=== PATIENT | female | born 1985 | race Caucasian/White ===

== ENCOUNTER 2017-04-13 07:02 | Inpatient (IN) | payer BC ==
[2017-04-13] VITALS (37 sets, daily range): BP systolic 70–179; BP diastolic 38–102
[~2017-04-13] VITALS: Ht 167.6 cm; Wt 81.6 kg
[2017-04-13] MEDS ORDERED: PRENATAL TABLE1 EAC3 PO (08:11)
[2017-04-13 08:30] LABS: HEMATOCRIT 30.4 % (36.0-46.0); MCH 30.4 PG (29.0-34.0); MCHC 36.2 G/DL (30.0-36.0); NRBC (%) 0.3 /100 WBC (0-0); PLATELET COUNT 53 K/uL (156-360); RBC DIS.WIDTH-CV 14.2 % (11.8-14.6); RBC DIS.WIDTH-SD 42.7 % (39-53); RED BLOOD COUNT 3.62 M/uL (3.80-5.20); WHITE BLOOD COUNT 14.1 K/uL (4.1-10.2)
[2017-04-13 08:57] LABS: ABS NEUTROPHIL COUNT 11.4; ANISOCYTOSIS 1+; ATYPICAL LYMPHOCYTE 0.9 %; BAND NEUTROPHILS 4.3 % (0-8.0); BASOPHILS 0.9 %; EOSINOPHIL ABS CT 0.1; EOSINOPHILS 0.9 % (0-5.0); LYMPHOCYTES 6.1 % (15.0-45.0); METAMYELOCYTES 1.7 %; MICROCYTOSIS 1+; MONOCYTES 7.8 % (0-9.0); MYELOCYTES 0.9 %; NUCLEATED RBC'S 1.7; PLAT.SUFFICIENCY DECREASED; POLYCHROMASIA 1+; SEG.NEUTROPHILS 76.5 % (46.0-76.0); SPHEROCYTES 1+; TEAR DROP CELLS 1+
[2017-04-13 09:49] LABS: ALBUMIN 2.8 G/DL (3.2-4.8); CHLORIDE 92 MEQ/L (99-109); POTASSIUM 4.5 MEQ/L (3.7-5.4); SODIUM 122 MEQ/L (136-147); TOTAL BILIRUBIN 2.7 MG/DL (0.0-1.0)
[2017-04-13 09:51] LABS: HEMATOCRIT 30.7 % (36.0-46.0); HEMOGLOBIN 11.5 G/DL (11.9-15.5); MCH 31.6 PG (29.0-34.0); MCHC 37.5 G/DL (30.0-36.0); MCV 84.3 FL (83-99); NRBC (%) 0.5 /100 WBC (0-0); PLATELET COUNT 52 K/uL (156-360); RBC DIS.WIDTH-CV 14.4 % (11.8-14.6); RBC DIS.WIDTH-SD 43.5 % (39-53); RED BLOOD COUNT 3.64 M/uL (3.80-5.20); WHITE BLOOD COUNT 14.9 K/uL (4.1-10.2)
[2017-04-13 09:55] LABS: ALKALINE PHOSPHATASE 185 IU/L (3-129); ALT (GPT) 459 IU/L (3-49); AST (GOT) 238 IU/L (2-34); CREATININE 0.5 MG/DL (0.6-1.3); GFR ESTIMATE (CALCULATED) > 59 mL/min/; GLUCOSE 78 mg/dL (70-99); TOTAL PROTEIN 5.5 G/DL (6.4-8.3); UREA NITROGEN (BUN) 8 mg/dL (9-23); URIC ACID 4.2 mg/dL (3.1-9.2)
[2017-04-13 10:14] LABS: APPEARANCE CLEAR ((CLEAR)); BILIRUBIN NEGATIVE; BLOOD NEGATIVE; COLOR AMBER ((YELLOW)); GLUCOSE (STRIP) NEGATIVE; KETONES 5; LEUKOCYTES NEGATIVE; NITRITE NEGATIVE; PROTEIN (STRIP) 100; SPECIFIC GRAVITY 1.011 (1.000-1.030)
[2017-04-13 10:18] LABS: BACTERIA NONE SEEN /HPF; EPITHELIAL CELLS RARE /HPF; MUCUS NONE SEEN /LPF; RED BLOOD CELLS 0-5 /HPF (0-5); WHITE BLOOD CELLS 0-5 /HPF (0-5)
[2017-04-13 10:39] LABS: UR CREATININE CONCENTRATION 104.8 MG/DL
[2017-04-13 11:20] LABS: ABS NEUTROPHIL COUNT 12.1; ANISOCYTOSIS 1+; EOSINOPHIL ABS CT 0.1; MICROCYTOSIS 1+; PLAT.SUFFICIENCY DECREASED; POLYCHROMASIA 1+; SPHEROCYTES 1+
[2017-04-13 15:00] LABS: HEMATOCRIT 31.4 % (36.0-46.0); HEMOGLOBIN 11.4 G/DL (11.9-15.5); MCH 30.3 PG (29.0-34.0); MCHC 36.3 G/DL (30.0-36.0); MCV 83.5 FL (83-99); NRBC (%) 0.4 /100 WBC (0-0); PLATELET COUNT 62 K/uL (156-360); RBC DIS.WIDTH-CV 14.2 % (11.8-14.6); RBC DIS.WIDTH-SD 41.9 % (39-53); RED BLOOD COUNT 3.76 M/uL (3.80-5.20); WHITE BLOOD COUNT 14.6 K/uL (4.1-10.2)
[2017-04-13 15:15] LABS: ALBUMIN 2.8 G/DL (3.2-4.8); ALKALINE PHOSPHATASE 179 IU/L (3-129); ALT (GPT) 427 IU/L (3-49); AST (GOT) 227 IU/L (2-34); CHLORIDE 92 MEQ/L (99-109); CREATININE 0.4 MG/DL (0.6-1.3); GFR ESTIMATE (CALCULATED) > 59 mL/min/; POTASSIUM 3.7 MEQ/L (3.7-5.4); SODIUM 121 MEQ/L (136-147); TOTAL BILIRUBIN 2.6 MG/DL (0.0-1.0); TOTAL PROTEIN 5.7 G/DL (6.4-8.3); UREA NITROGEN (BUN) 6 mg/dL (9-23)
[2017-04-13 15:18] LABS: GLUCOSE 128 mg/dL (70-99)
[2017-04-13 16:18] LABS: ABS NEUTROPHIL COUNT 10.1; EOSINOPHIL ABS CT 0.1
[2017-04-13] MEDS ORDERED: IBUPROFEN800 MG PO (20:25)
[2017-04-13 21:33] LABS: ALBUMIN 2.2 G/DL (3.2-4.8); ALT (GPT) 344 IU/L (3-49); AST (GOT) 180 IU/L (2-34); CHLORIDE 96 MEQ/L (99-109); CREATININE 0.6 MG/DL (0.6-1.3); GFR ESTIMATE (CALCULATED) > 59 mL/min/; GLUCOSE 132 mg/dL (70-99); POTASSIUM 4.3 MEQ/L (3.7-5.4); SODIUM 122 MEQ/L (136-147); TOTAL BILIRUBIN 2.5 MG/DL (0.0-1.0); UREA NITROGEN (BUN) 8 mg/dL (9-23)
[2017-04-13 21:36] LABS: ALKALINE PHOSPHATASE 127 IU/L (3-129); TOTAL PROTEIN 4.5 G/DL (6.4-8.3)
[2017-04-13 21:37] LABS: MAGNESIUM 5.6 mg/dl (1.3-2.7)
[2017-04-13 21:41] LABS: ABS NEUTROPHIL COUNT 22.8; ANISOCYTOSIS 1+; EOSINOPHIL ABS CT 0; HEMATOCRIT 24.8 % (36.0-46.0); HEMOGLOBIN 8.9 G/DL (11.9-15.5); MCH 30.3 PG (29.0-34.0); MCHC 35.9 G/DL (30.0-36.0); MCV 84.4 FL (83-99); NRBC (%) 0.4 /100 WBC (0-0); PLATELET COUNT 71 K/uL (156-360); RBC DIS.WIDTH-CV 14.6 % (11.8-14.6); RBC DIS.WIDTH-SD 43.7 % (39-53); RED BLOOD COUNT 2.94 M/uL (3.80-5.20); WHITE BLOOD COUNT 23.8 K/uL (4.1-10.2)
[2017-04-14] VITALS (23 sets, daily range): BP systolic 97–130; BP diastolic 54–78
[2017-04-14 06:50] LABS: BASOPHIL (%) 0.2 % (0-1); EOSINOPHIL (%) 0 % (0-5); HEMATOCRIT 20.7 % (36.0-46.0); HEMOGLOBIN 7.6 G/DL (11.9-15.5); IMMATURE GRANULOCYTE (%) 4.6 % (0.0-0.7); LYMPHOCYTE (%) 10.3 % (15-42); LYMPHOCYTE COUNT 2.4 K/uL (1.0-2.8); MCH 31.7 PG (29.0-34.0); MCHC 36.7 G/DL (30.0-36.0); MCV 86.3 FL (83-99); MONOCYTE (%) 5.9 % (3-12); MONOCYTE COUNT 1.4 K/uL (0-0.8); NEUTROPHIL COUNT 18.5 K/uL (1.8-6.4); NRBC (%) 0.4 /100 WBC (0-0); RBC DIS.WIDTH-CV 14.6 % (11.8-14.6); RBC DIS.WIDTH-SD 44.9 % (39-53); WHITE BLOOD COUNT 23.4 K/uL (4.1-10.2)
[2017-04-14 06:52] LABS: PLATELET COUNT 96 K/uL (156-360)
[2017-04-14 07:28] LABS: ALBUMIN 2.2 G/DL (3.2-4.8); ALKALINE PHOSPHATASE 135 IU/L (3-129); ALT (GPT) 329 IU/L (3-49); AST (GOT) 173 IU/L (2-34); CHLORIDE 95 MEQ/L (99-109); CREATININE 0.6 MG/DL (0.6-1.3); GFR ESTIMATE (CALCULATED) > 59 mL/min/; POTASSIUM 4.9 MEQ/L (3.7-5.4); SODIUM 124 MEQ/L (136-147); TOTAL PROTEIN 4.4 G/DL (6.4-8.3); UREA NITROGEN (BUN) 7 mg/dL (9-23)
[2017-04-14 07:29] LABS: GLUCOSE 82 mg/dL (70-99)
[2017-04-14 07:30] LABS: TOTAL BILIRUBIN 1.8 MG/DL (0.0-1.0)
[2017-04-15] VITALS (30 sets, daily range): BP systolic 117–172; BP diastolic 61–86
[2017-04-15 06:24] LABS: HEMATOCRIT 17.2 % (36.0-46.0); MCH 31.3 PG (29.0-34.0); MCHC 34.9 G/DL (30.0-36.0); MCV 89.6 FL (83-99); NRBC (%) 0.9 /100 WBC (0-0); RBC DIS.WIDTH-CV 15.8 % (11.8-14.6); RBC DIS.WIDTH-SD 47.8 % (39-53); RED BLOOD COUNT 1.92 M/uL (3.80-5.20); WHITE BLOOD COUNT 17.2 K/uL (4.1-10.2)
[2017-04-15 06:31] LABS: ALBUMIN 2.2 G/DL (3.2-4.8); ALKALINE PHOSPHATASE 141 IU/L (3-129); ALT (GPT) 247 IU/L (3-49); CHLORIDE 104 MEQ/L (99-109); CREATININE 0.6 MG/DL (0.6-1.3); GFR ESTIMATE (CALCULATED) > 59 mL/min/; GLUCOSE 72 mg/dL (70-99); POTASSIUM 4.6 MEQ/L (3.7-5.4); TOTAL PROTEIN 4.4 G/DL (6.4-8.3); UREA NITROGEN (BUN) 6 mg/dL (9-23)
[2017-04-15 06:33] LABS: AST (GOT) 88 IU/L (2-34); SODIUM 134 MEQ/L (136-147); TOTAL BILIRUBIN 0.9 MG/DL (0.0-1.0)
[2017-04-15 06:49] LABS: ABS NEUTROPHIL COUNT 12.8; ANISOCYTOSIS 2+; BASOPHILS 0.9 %; EOSINOPHIL ABS CT 0.2; EOSINOPHILS 0.9 % (0-5.0); LYMPHOCYTES 20.2 % (15.0-45.0); METAMYELOCYTES 0.9 %; MICROCYTOSIS 2+; MONOCYTES 1.7 % (0-9.0); MYELOCYTES 0.9 %; NUCLEATED RBC'S 1.8; PLAT.SUFFICIENCY ADEQUATE; PLATELET COUNT 186 K/uL (156-360); POLYCHROMASIA 1+; SMUDGE CELLS 0.9
[2017-04-15 06:50] LABS: SEG.NEUTROPHILS 74.5 % (46.0-76.0)
[2017-04-15] MEDS ORDERED: ESCITALOPRAM OX10 MG PO (14:21)
[2017-04-16 03:00] VITALS: BP 145/90
[2017-04-16 06:49] LABS: HEMATOCRIT 30.9 % (36.0-46.0); MCHC 33.7 G/DL (30.0-36.0); NRBC (%) 0.6 /100 WBC (0-0); RBC DIS.WIDTH-CV 15.7 % (11.8-14.6); WHITE BLOOD COUNT 18.5 K/uL (4.1-10.2)
[2017-04-16 06:53] LABS: HEMOGLOBIN 10.4 G/DL (11.9-15.5); PLATELET COUNT 260 K/uL (156-360); RED BLOOD COUNT 3.47 M/uL (3.80-5.20)
[2017-04-16 07:20] LABS: ABS NEUTROPHIL COUNT 13.9; ANISOCYTOSIS 1+; ATYPICAL LYMPHOCYTE 0.9 %; BAND NEUTROPHILS 3.4 % (0-8.0); BURR CELLS 1+; EOSINOPHIL ABS CT 0.3; EOSINOPHILS 1.7 % (0-5.0); LYMPHOCYTES 12.9 % (15.0-45.0); METAMYELOCYTES 3.4 %; MONOCYTES 3.5 % (0-9.0); MYELOCYTES 2.6 %; NUCLEATED RBC'S 1.7; PLAT.SUFFICIENCY ADEQUATE; POLYCHROMASIA 1+; SEG.NEUTROPHILS 71.6 % (46.0-76.0)
[2017-04-16 07:33] VITALS: BP 166/88
[2017-04-16 07:52] VITALS: BP 153/91
[2017-04-16 09:36] LABS: ALBUMIN 2.7 G/DL (3.2-4.8); ALT (GPT) 209 IU/L (3-49); AST (GOT) 66 IU/L (2-34); CHLORIDE 106 MEQ/L (99-109); CREATININE 0.5 MG/DL (0.6-1.3); GFR ESTIMATE (CALCULATED) > 59 mL/min/; GLUCOSE 85 mg/dL (70-99); POTASSIUM 4.2 MEQ/L (3.7-5.4); SODIUM 139 MEQ/L (136-147); TOTAL BILIRUBIN 0.9 MG/DL (0.0-1.0); UREA NITROGEN (BUN) 5 mg/dL (9-23)
[2017-04-16 09:37] LABS: ALKALINE PHOSPHATASE 179 IU/L (3-129); TOTAL PROTEIN 5.3 G/DL (6.4-8.3)
[2017-04-16 10:47] VITALS: BP 164/88
[2017-04-16 13:55] VITALS: BP 135/82
[2017-04-16] MEDS ORDERED: LABETALOL HCL200 MG PO (14:37)
[2017-04-16 17:07] VITALS: BP 144/85
[2017-04-17] MEDS ORDERED: LABETALOL HCL200 MG PO (19:02)
== END 2017-04-16 18:05 | disposition home or self-care (01) | DRG 775 ==
LOC: LDRP-OP 07:02 → 2WEST 07:03
PROVIDERS: Advanced Practice Midwife; Obstetrics & Gynecology; Obstetrics & Gynecology Obstetrics
DX: O14.24 HELLP syndrome, complicating childbirth (principal); O70.1 Second degree perineal laceration during delivery; O99.02 Anemia complicating childbirth; D58.9 Hereditary hemolytic anemia, unspecified; O42.02 Full-term premature rupture of membranes, onset of labor within 24 hours of rupture; O69.81X0 Labor and delivery complicated by cord around neck, without compression, not applicable or unspecified; O99.344 Other mental disorders complicating childbirth; F41.0 Panic disorder [episodic paroxysmal anxiety]; O99.824 Streptococcus B carrier state complicating childbirth; Z3A.37 37 weeks gestation of pregnancy; Z37.0 Single live birth
CPT/HCPCS: 80053; 81003; 82330; 82570; 83735; 84156; 84550; 85025; 85025 91; 86850; 86900; 86901; 86920; 88307; J0595; J0610; J3475; J7120; P9016

== ENCOUNTER 2017-04-17 17:07 | Outpatient (CLI) | payer BC ==
[~2017-04-17 17:07] MED LIST: ESCITALOPRAM OX10 MG PO; IBUPROFEN800 MG PO; LABETALOL HCL200 MG PO; PRENATAL TABLE1 EAC3 PO
[2017-04-17 17:19] VITALS: BP 184/97
[2017-04-17 17:35] VITALS: BP 165/85
[2017-04-17 17:50] VITALS: BP 165/91
[2017-04-17 18:11] LABS: HEMATOCRIT 31.2 % (36.0-46.0); HEMOGLOBIN 10.7 G/DL (11.9-15.5); MCH 31.4 PG (29.0-34.0); MCHC 34.3 G/DL (30.0-36.0); MCV 91.5 FL (83-99); NRBC (%) 0.4 /100 WBC (0-0); PLATELET COUNT 315 K/uL (156-360); RBC DIS.WIDTH-CV 16.6 % (11.8-14.6); RED BLOOD COUNT 3.41 M/uL (3.80-5.20); WHITE BLOOD COUNT 14.3 K/uL (4.1-10.2)
[2017-04-17 18:21] LABS: ALBUMIN 3.1 G/DL (3.2-4.8); CHLORIDE 107 MEQ/L (99-109); POTASSIUM 4.1 MEQ/L (3.7-5.4); SODIUM 140 MEQ/L (136-147); TOTAL BILIRUBIN 0.9 MG/DL (0.0-1.0)
[2017-04-17 18:27] VITALS: BP 169/93
[2017-04-17 18:28] LABS: ALKALINE PHOSPHATASE 176 IU/L (3-129); ALT (GPT) 195 IU/L (3-49); AST (GOT) 86 IU/L (2-34); CREATININE 0.5 MG/DL (0.6-1.3); GFR ESTIMATE (CALCULATED) > 59 mL/min/; GLUCOSE 93 mg/dL (70-99); TOTAL PROTEIN 6.1 G/DL (6.4-8.3); UREA NITROGEN (BUN) 5 mg/dL (9-23)
[2017-04-17 18:43] LABS: ABS NEUTROPHIL COUNT 10.9; ANISOCYTOSIS 1+; EOSINOPHIL ABS CT 0.4; PLAT.SUFFICIENCY ADEQUATE; POLYCHROMASIA 1+
[2017-04-17 18:57] VITALS: BP 142/87
[2017-04-17] MEDS ORDERED: LABETALOL HCL200 MG PO (19:02)
[2017-04-17 19:26] VITALS: BP 139/83
== END 2017-04-17 19:53 | disposition home or self-care (01) ==
LOC: LDRP-OP 17:07 → 2WEST 17:08
PROVIDERS: Obstetrics & Gynecology Gynecology
DX: O14.25 HELLP syndrome, complicating the puerperium (principal); R79.89 Other specified abnormal findings of blood chemistry
CPT/HCPCS: 80053; 85025; G0378